=== PATIENT | female | born 2000 | race Caucasian/White ===

== ENCOUNTER 2018-05-30 11:54 | Emergency (ER) | payer OTHER ==
--- NOTE | 2018-05-30 12:37 | ED ---
Female Urogenital HPI - General Chief complaint: Vaginal Bleeding Stated complaint: Vaginal Bleeding-poss miscarriage Time Seen by Provider: 05/30/18 12:11 Source: patient, RN notes reviewed, old records reviewed Mode of arrival: wheelchair Limitations: no limitations - History of Present Illness Initial comments: Patient is a 18-year-old female presents emergency department today for reevaluation due to increased vaginal bleeding. Patient is a female. Patient seen in the emergency department 2 days ago. That time she refused blood work and testing. She was having some bright red blood and went to many of the time. She reports that she's had increased cramping and pain and worsening bleeding today. Patient believes that she may have passed gestational sac. She didn't have an ultrasound 2 days ago which did not identify a heart rate but did show evidence of gestational sac. She believes that she is 11 weeks . Her [employer] DEVELOPER is Dr. Francois. - Related Data Home Medications Medication Instructions Recorded Confirmed Pnv No.95/Ferrous Fum/Folic AC 1 tab PO HS 05/27/18 05/27/18 [ Multivitamin Tablet] Allergies Allergy/AdvReac Type Severity Reaction Status Date / Time No Known Allergies Allergy Verified 05/30/18 12:09 Review of Systems ROS Statement: Those systems with pertinent positive or pertinent negative responses have been documented in the HPI. ROS Other: All systems not noted in ROS Statement are negative. Past Medical History Past Medical History: No Reported History History of Any Multi-Drug Resistant Organisms: None Reported Past Surgical History: No Surgical Hx Reported Past Psychological History: No Psychological Hx Reported Smoking Status: Former smoker Past Alcohol Use History: None Reported Past Drug Use History: None Reported General Exam - General Exam Comments Initial Comments: This is a 18-year-old female. Alert and oriented 3. Patient appears in no significant distress. Limitations: no limitations General appearance: alert, in no apparent distress Head exam: Present: atraumatic, normocephalic, normal inspection Eye exam: Present: normal appearance, PERRL, EOMI. Absent: scleral icterus, conjunctival injection, periorbital swelling ENT exam: Present: normal exam, mucous membranes moist Neck exam: Present: normal inspection. Absent: tenderness, meningismus, lymphadenopathy Respiratory exam: Present: normal lung sounds bilaterally. Absent: respiratory distress, wheezes, rales, rhonchi, stridor Cardiovascular Exam: Present: regular rate, normal rhythm, normal heart sounds. Absent: systolic murmur, diastolic murmur, rubs, gallop, clicks GI/Abdominal exam: Present: soft, normal bowel sounds. Absent: distended, tenderness, guarding, rebound, rigid External exam: Present: normal external exam Speculum exam: Present: vaginal bleeding (large clots, heavy vaginal bleeding). Absent: normal speculum exam By manual exam: Present: normal by manual exam. Absent: cervical motion tenderness, adnexal tenderness Extremities exam: Present: normal inspection, full ROM, normal capillary refill. Absent: tenderness, pedal edema, joint swelling, calf tenderness Back exam: Present: normal inspection Neurological exam: Present: alert, oriented X3, CN II-XII intact Psychiatric exam: Present: normal affect, normal mood Skin exam: Present: warm, dry, intact, normal color. Absent: rash Course Vital Signs 05/30/18 05/30/18 05/30/18 12:07 14:14 15:19 Temperature 98.6 F 98.7 F Pulse Rate 83 69 64 Respiratory 16 18 18 Rate Blood Pressure 112/73 124/59 115/60 O2 Sat by Pulse 99 99 98 Oximetry Medical Decision Making - Medical Decision Making 18 year old female, presents with increased vaginal bleeding. She is about 11 weeks due to LMP. She has heavy vaginal bleed and signigicant clotting at this time. She has no adnexal tenderness. HCG level is 3280, Rh Positive blood type. Patient US shows gestational sac, with blighted ovum. She has passed multiple large clots in ED. Discussed if she feels weak and light headed to return for HGb Recheck. Discussed follow up with [employer]IC[employer] and repeat hcg level. Return parameters discussed. - Lab Data Result diagrams: 05/30/18 12:35 05/30/18 12:35 Lab Results 05/30/18 05/30/18 05/30/18 Range/Units 12:35 12:35 12:35 WBC 12.6 H (4.0-11.0) k/uL RBC 4.57 (3.80-5.40) m/uL Hgb 14.1 (11.4-16.0) gm/dL Hct 41.8 (34.0-46.0) % MCV 91.4 (80.0-100.0) fL MCH 30.8 (25.0-35.0) pg MCHC 33.7 (31.0-37.0) g/dL RDW 12.8 (11.5-15.5) % Plt Count 276 (150-450) k/uL Neutrophils % 78 % Lymphocytes % 15 % Monocytes % 5 % Eosinophils % 2 % Basophils % 0 % Neutrophils # 9.8 H (1.3-7.7) k/uL Lymphocytes # 1.8 (1.0-4.8) k/uL Monocytes # 0.6 (0-1.0) k/uL Eosinophils # 0.2 (0-0.7) k/uL Basophils # 0.0 (0-0.2) k/uL Sodium 141 (137-145) mmol/L Potassium 3.7 (3.5-5.1) mmol/L Chloride 107 (98-107) mmol/L Carbon Dioxide 23 (22-30) mmol/L Anion Gap 11 mmol/L BUN 6 L (7-17) mg/dL Creatinine 0.49 L (0.52-1.04) mg/dL Est GFR (CKD-EPI)AfAm >90 (>60 ml/min/1.73 sqM) Est GFR (CKD-EPI)NonAf >90 (>60 ml/min/1.73 sqM) Glucose 91 (74-99) mg/dL Calcium 9.9 (8.4-10.2) mg/dL Total Bilirubin 0.7 (0.2-1.3) mg/dL AST 20 (14-36) U/L ALT 25 (9-52) U/L Alkaline Phosphatase 56 (38-126) U/L Total Protein 7.8 (6.3-8.2) g/dL Albumin 4.7 (3.5-5.0) g/dL HCG, Quant 3827.8 mIU/mL Blood Type O Positive Blood Type Recheck [facility] ONLY - Radiology Data Radiology results: report reviewed Injury no gestational sac without yolk or pole identified. Possibly a blighted ovum should be considered. Disposition Clinical Impression: Threatened miscarriage Disposition: HOME SELF-CARE Condition: Good Instructions: Threatened Miscarriage (ED) Additional Instructions: Patient advised to follow-up with primary care physician. Return to the emergency department if any alarming signs or symptoms occur. Patient should your hCG level redrawn in 2 days. Is patient prescribed a controlled substance at d/c from ED?: No Referrals: None,Stated [Primary Care Provider] - 1-2 days Thomsa Francois DO [REFERRING] - 1-2 days Time of Disposition: 14:52
[2018-05-30 12:45] LABS: Basophils % (A) 0 %; Eosinophils # (A) 0.2 k/uL (0-0.7); Eosinophils % (A) 2 %; HCT 41.8 % (34.0-46.0); HGB 14.1 gm/dL (11.4-16.0); Lymphocytes # (A) 1.8 k/uL (1.0-4.8); Lymphocytes % (A) 15 %; MCH 30.8 pg (25.0-35.0); MCHC 33.7 g/dL (31.0-37.0); MCV 91.4 fL (80.0-100.0); Monocytes # (A) 0.6 k/uL (0-1.0); Monocytes % (A) 5 %; Neutrophils # (A) 9.8 k/uL (1.3-7.7); Neutrophils % (A) 78 %; Platelet Count 276 k/uL (150-450); RBC 4.57 m/uL (3.80-5.40); RDW 12.8 % (11.5-15.5); WBC 12.6 k/uL (4.0-11.0)
[2018-05-30 12:59] LABS: ALT 25 U/L (9-52); AST 20 U/L (14-36); Albumin 4.7 g/dL (3.5-5.0); Alkaline Phosphatase 56 U/L (38-126); Anion Gap 11 mmol/L; Blood Urea Nitrogen 6 mg/dL (7-17); Calcium 9.9 mg/dL (8.4-10.2); Carbon Dioxide 23 mmol/L (22-30); Chloride 107 mmol/L (98-107); Glucose 91 mg/dL (74-99); Potassium 3.7 mmol/L (3.5-5.1); Sodium 141 mmol/L (137-145); Total Bilirubin 0.7 mg/dL (0.2-1.3); Total Protein 7.8 g/dL (6.3-8.2)
[2018-05-30] MEDS ORDERED: KETOROLAC 30 MG/ML 1 ML VIAL IVP STA (13:06)
[2018-05-30 13:16] LABS: HCG,Quantitative Serum 3827.8 mIU/mL
--- NOTE | 2018-05-30 14:11 | US ---
EXAMINATION TYPE: Transabdominal DATE OF EXAM: 10/20/17 COMPARISON: NONE CLINICAL HISTORY: Pain. Vaginal bleeding, cramping EXAM PERFORMED: Transabdominal (TA) EXAM MEASUREMENTS: GESTATIONAL AGE / DATING Physician Established: Not yet established Dates by LMP: (11 weeks/4 days) EDC: 12/15/18 Dates by First Scan: (6 weeks/5 days) - by MSD EDC: 01/18/19 Dates by Current Scan for: (6 weeks/4 days) - by MSD EDC: 01/19/19 MATERNAL ANATOMY Uterus: 7.6 x 4.5 x 5.1cm Right Ovary: 2.7 x 1.5 x 3.3cm Left Ovary: 2.3 x 1.2 x 1.4cm Post CDS / Adnexa: wnl Presence of free fluid: no Presence of corpus luteal cyst: not seen at this time GESTATION / SURVEY MSD: 2.1cm (6 weeks/4 days) Yolk Sac (normal less than 6mm): not seen unable to identify pole at this time Date of LMP: 03/10/18 Beta HcG (if available): 3827 Probable GS visualized within uterus. Unable to identify yolk sac or pole at this time. IMPRESSION: Intrauterine gestational sac without yolk sac or pole identified. The possibility of blighted o vum should be considered.
[2018-05-30 14:15] VITALS: RESP 18
[2018-05-30 15:21] VITALS: BP 115/60; PULSE 64; TEMP 98.7
== END 2018-05-30 15:15 | disposition home or self-care (01) ==
LOC: EC 11:54
DX: O20.0 Threatened abortion (principal); Z3A.11 11 weeks gestation of pregnancy; Z87.891 Personal history of nicotine dependence
CPT/HCPCS: 36415; 86900; 86901; 80053; 85025; 84702; 76801; 99284; 96374; J1885

== ENCOUNTER → 2018-06-01 | Outpatient (CLI) | payer OTHER | END | disposition home or self-care (01) | LOC: LABWHC1 15:25 | PROVIDERS: ATTEND Physician Assistant Medical | DX: O20.0 Threatened abortion (principal); Z3A.00 Weeks of gestation of pregnancy not specified | CPT/HCPCS: 36415; 84702 ==

== ENCOUNTER → 2020-05-09 | Outpatient (CLI) | payer OTHER ==
--- NOTE | 2020-05-09 16:38 | US ---
EXAMINATION TYPE: Transabdominal DATE OF EXAM: 05/09/2020 12:46 PM COMPARISON: NONE CLINICAL HISTORY: Z36 confirm dates. Confirm Dates, pt has no complaints at this time EXAM PERFORMED: Transabdominal (TA) EXAM MEASUREMENTS: GESTATIONAL AGE / DATING Physician Established: (12 weeks/1 days) EDC: 11/20/2020 Dates by LMP: (12 weeks/1 days) EDC: 11/20/2020 Dates by First Scan: No prior Dates by Current Scan for: (12 weeks/0 days) EDC: 11/21/2020 MATERNAL ANATOMY Uterus: 11.2 x 6.1 x 8.1 cm Right Ovary: 2.3 x 1.5 x 1.2 cm Left Ovary: 2.0 x 1.7 x 1.4 cm Post CDS / Adnexa: wnl Presence of free fluid: No Presence of subchorionic bleed: No GESTATION / SURVEY CRL: 5.3 cm (12 weeks/0 days) MSD: wnl Heart Rate: 159 bpm Rhythm: Normal IUP: Viable IUP IMPRESSION: 1. Single live intrauterine gestation, with heart rate of 159 bpm. Gestational age 12 weeks 0 d ays. 2. Normal appearance of the bilateral ovaries. 3. No pelvic free fluid.
== END | disposition home or self-care (01) ==
LOC: RADUSWWP 12:32
PROVIDERS: ATTEND Obstetrics & Gynecology
DX: Z36.89 Encounter for other specified antenatal screening (principal); Z3A.12 12 weeks gestation of pregnancy
CPT/HCPCS: 76801

== ENCOUNTER 2020-11-09 06:46 | Inpatient (IN) | payer OTHER ==
[2020-11-09] MEDS ORDERED: TERBUTALINE 1 MG/ML VIAL SQ PRN (07:08)
[2020-11-09] MEDS ORDERED: CARBOPROST TROMETHAMINE 250 MCG/ML 1 ML AMP IM PRN (07:08)
[2020-11-09] MEDS ORDERED: OXYTOCIN 10 UNIT/ML 1 ML VIAL IM PRN (07:08)
[2020-11-09] MEDS ORDERED: METHYLERGONOVINE 0.2 MG/ML 1 ML AMP IM PRN (07:08)
[2020-11-09] MEDS ORDERED: LIDOCAINE 0.5% (PF) 5 MG/ML (50 ML SDV) SQ PRN (07:08)
[2020-11-09] MEDS ORDERED: LACTATED RINGERS 1,000 ML IV SCH (07:15)
[2020-11-09] MEDS: LACTATED RINGERS 1,000 ML IV SCH ×3 (07:30→12:20)
[2020-11-09 08:19] LABS: Basophils % (A) 0 %; Eosinophils # (A) 0.2 k/uL (0-0.7); Eosinophils % (A) 1 %; HCT 34.8 % (34.0-46.0); HGB 12.5 gm/dL (11.4-16.0); Lymphocytes % (A) 12 %; MCH 31.8 pg (25.0-35.0); MCV 88.3 fL (80.0-100.0); Mean Platelet Volume 8.4; Monocytes # (A) 0.9 k/uL (0-1.0); Monocytes % (A) 5 %; Neutrophils # (A) 12.8 k/uL (1.3-7.7); Neutrophils % (A) 80 %; Platelet Count 297 k/uL (150-450); RBC 3.94 m/uL (3.80-5.40); RDW 14.1 % (11.5-15.5); WBC 16.1 k/uL (3.8-10.6)
[2020-11-09] MEDS ORDERED: BUTORPHANOL 1 MG/ML 1 ML VIAL IV PRN (08:23)
--- NOTE | 2020-11-09 08:26 | P.HPOB ---
History of Present Illness H&P Date: 11/09/20 Chief Complaint: SROM 20-year-old presents at 38 weeks and 2 days with spontaneous rupture membranes. Her cervix is 2 cm dilated, 90% effaced, and -2 station. She is c ontracting irregularly. heart tones 130 with moderate variability and reactive. Review of Systems All systems: negative Constitutional: Denies chills, Denies fever Eyes: denies blurred vision, denies pain Ears, nose, mouth and throat: Denies headache, Denies sore throat Cardiovascular: Denies chest pain, Denies shortness of breath Respiratory: Denies cough Gastrointestinal: Denies abdominal pain, Denies diarrhea, Denies nausea, Denies vomiting Genitourinary: Denies dysuria, Denies hematuria Musculoskeletal: Denies myalgias Integumentary: Denies pruritus, Denies rash Neurological: Denies numbness, Denies weakness Psychiatric: Denies anxiety, Denies depression Endocrine: Denies fatigue, Denies weight change Past Medical History Past Medical History: Asthma Additional Past Medical History / Comment(s): Subjective history: First was a spontaneous this is her second and she's had care with Dr. Paz. Blood type is O+, antibodies negative, rubella immune, RPR nonreactive, hepatitis B negative, HIV negative. He is negative. History of Any Multi-Drug Resistant Organisms: None Reported Past Surgical History: No Surgical Hx Reported Past Psychological History: Anxiety Smoking Status: Never smoker Past Alcohol Use History: None Reported Past Drug Use History: None Reported - Past Family History Mother Family Medical History: Syncope Father Family Medical History: Hypertension Medications and Allergies Home Medications Medication Instructions Recorded Confirmed Type Pnv No.95/Ferrous Fum/Folic AC 1 tab PO HS 05/27/18 11/09/20 History [ Multivitamin Tablet] Allergies Allergy/AdvReac Type Severity Reaction Status Date / Time No Known Allergies Allergy Verified 11/09/20 06:59 Exam Osteopathic Statement: *. No significant issues noted on an osteopathic structural exam other than those noted in the History and Physical/Consult. Vital Signs Temp Pulse Resp BP Pulse Ox 11/09/20 07:18 96.4 F L 85 16 133/80 99 11/09/20 07:00 96.4 F L 85 16 133/80 99 Intake and Output 11/08/20 11/09/20 11/09/20 22:59 06:59 14:59 Other: Weight 115.212 kg Heart: Regular rate and rhythm Lungs: Clear to auscultation bilaterally Abdomen: Soft, nontender Extremities: Negative Homans sign Results Result Diagrams: 11/09/20 07:47 Abnormal Lab Results - Last 24 Hours (Table) 11/09/20 Range/Units 07:47 WBC 16.1 H (3.8-10.6) k/uL Neutrophils # 12.8 H (1.3-7.7) k/uL Assessment and Plan (1) Spontaneous rupture of membranes Current Visit: Yes Status: Acute Code(s): THY6730 - SNOMED Code(s): 789857056 (2) Normal labor Current Visit: Yes Status: Acute Code(s): O80 - ENCOUNTER FOR FULL-TERM UNCOMPLICATED DELIVERY; Z37.9 - OUTCOME OF DELIVERY, UNSPECIFIED SNOMED Code(s): 48491184 Plan: 1. Admit to family place 2. Expectant management 3. Anticipate normal vaginal delivery
[2020-11-09] MEDS ORDERED: fentaNYL (PF) 50 MCG/ML 5 ML AMP ONE (10:13)
[2020-11-09] MEDS ORDERED: SODIUM CHLORIDE 0.9% 100 ML BAG ONE (10:13)
[2020-11-09] MEDS ORDERED: ROPIVACAINE 5MG/ML 20ML VIAL ONE (10:13)
[2020-11-09] MEDS ORDERED: SIMETHICONE 80 MG CHEWABLE PO PRN (16:28)
[2020-11-09] MEDS ORDERED: diphenhydrAMINE 50 MG CAP PO PRN (16:28)
[2020-11-09] MEDS ORDERED: diphenhydrAMINE 25 MG CAP PO PRN (16:28)
[2020-11-09] MEDS ORDERED: HYDROCORTISONE 2.5% RECTAL CREAM 30 GM TUBE RECTAL PRN (16:28)
[2020-11-09] MEDS ORDERED: LANOLIN CREAM 5 GM TUBE TOPICAL PRN (16:28)
[2020-11-09] MEDS ORDERED: ACETAMINOPHEN TAB 325 MG TAB PO PRN (16:28)
[2020-11-09] MEDS ORDERED: BENZOCAINE/MENTHOL SPRAY 1 GM/SPRAY AEROSOL TOPICAL PRN (16:28)
[2020-11-09] MEDS ORDERED: diphenhydrAMINE 50 MG/ML 1 ML VIAL IVP PRN ×2 (16:28)
[2020-11-09] MEDS ORDERED: ZOLPIDEM 5 MG TAB PO PRN (16:28)
[2020-11-09] MEDS ORDERED: OXYTOCIN 30 UNITS/500 ML NS 30 UNIT in SALINE 1 500ML.BAG IV SCH (16:30)
[2020-11-09] MEDS: IBUPROFEN 600 MG TAB PO SCH (17:01)
--- NOTE | 2020-11-09 17:35 | P.PROBDLV ---
Vaginal Delivery Note - . Vaginal Delivery Note: The patient progressed to complete dilation after spontaneous rupture of membranes and one dose of Stadol followed by epidural anesthesia. She did receive 1 milliunit of oxytocin but this was discontinued due to a deceleration shortly before she was found to be 9-1/2 cm. She began pushing. 's head came to a crown. With one further push, the 's head delivered across the perineum followed by the anterior shoulder and the remainder of the . was placed on mother's abdomen and cord was clamped and cut. Infant was then examined by nursing staff. Cord blood was obtained secondary to O+ blood type. A viable female was noted with scores of 9 at 1 minute and 9 at 5 minutes and weight of 7 pounds 1.6 ounces. Placenta delivered shortly thereafter, intact, with a three-vessel cord. Uterus contracted fairly well after oxytocin was given and uterine massage was carried out. Her bladder was also drained. Inspection of the perineum revealed a second-degree perineal laceration. This area was anesthetized with 1% lidocaine and then sutured with 3-0 and 2-0 Vicryl suture in the usual multilayer fashion. Estimated blood loss is approximately 200 mL's. Both mother and are in stable condition.
[2020-11-09] MEDS: SENNOSIDES-DOCUSATE SODIUM 1 EACH TAB PO SCH (20:20)
[2020-11-10] MEDS: IBUPROFEN 600 MG TAB PO SCH ×5 (00:17→17:13)
[2020-11-10 07:12] LABS: Basophils % (A) 0 %; Eosinophils # (A) 0.1 k/uL (0-0.7); Eosinophils % (A) 1 %; HCT 26.8 % (34.0-46.0); Lymphocytes # (A) 2.1 k/uL (1.0-4.8); Lymphocytes % (A) 15 %; MCH 31.7 pg (25.0-35.0); MCHC 35.7 g/dL (31.0-37.0); MCV 88.8 fL (80.0-100.0); Mean Platelet Volume 9.3; Monocytes # (A) 0.7 k/uL (0-1.0); Monocytes % (A) 5 %; Neutrophils # (A) 10.8 k/uL (1.3-7.7); Neutrophils % (A) 78 %; Platelet Count 232 k/uL (150-450); RBC 3.02 m/uL (3.80-5.40); RDW 14.3 % (11.5-15.5); WBC 13.9 k/uL (3.8-10.6)
[2020-11-10 07:24] LABS: HGB 9.6 gm/dL (11.4-16.0)
[2020-11-10] MEDS: SENNOSIDES-DOCUSATE SODIUM 1 EACH TAB PO SCH ×2 (08:11→19:45)
--- NOTE | 2020-11-10 11:32 | P.DS ---
Providers Date of admission: 11/09/20 07:08 Expected date of discharge: 11/10/20 Attending physician: Valente Paz Primary care physician: Stated None Hospital Course: This is a 20-year-old female 2 para 0 at 38-2/7 weeks who presented with active labor with spontaneous rupture of membranes. She delivered vaginally a viable female on 11/09/2020 with scores of 9 at 1 minute and 9 at 5 minutes and weight of 7 pounds 1.6 ounces. Her course has been essentially uncomplicated. Lochia is decreasing. Pain is fairly well controlled with ibuprofen. She is working at breast-feeding. She does have a breast pump at home. Vital signs are stable. Abdomen is soft with fundus firm and nontender. Extremity show negative Homans. Impression is status post vaginal delivery day #1. Plan is to discharge home later today. Routine instructions are given. She will be given a shot impression for ibuprofen. She is advised to follow up with Dr. Paz in the office in 6 weeks. She is advised to call the office if she has any further questions or concerns prior to her appointment time. Procedures: Spontaneous vaginal delivery of a viable female infant on 11/09/2020 Patient Condition at Discharge: Stable Plan - Discharge Summary New Discharge Prescriptions: New Ibuprofen [Motrin] 600 mg PO Q6H #60 tab Continue Pnv No.95/Ferrous Fum/Folic AC [ Multivitamin Tablet] 1 tab PO HS Discharge Medication List Pnv No.95/Ferrous Fum/Folic AC [ Multivitamin Tablet] 1 tab PO HS 05/27/18 [History] Ibuprofen [Motrin] 600 mg PO Q6H #60 tab 11/10/20 [Rx] Follow up Appointment(s)/Referral(s): Valente Paz MD [STAFF PHYSICIAN] - 6 Weeks Activity/Diet/Wound Care/Special Instructions: Instructions 1. Do not begin any exercise program for 3 weeks. 2. Do not resume sexual relations for 3 weeks or longer if uncomfortable. 3. You may take tub baths or showers at any time. 4. You may use tampons if desired after 3 weeks. 5. Keep the area of episiotomy (stitches) clean and dry. 6. If you are not nursing, wear a good fitting, supportive bra during the day and limit fluid intake for at least 1 week to prevent breast engorgement. 7. Call the office, [phone], within the next week to make appointment for your 6 week checkup if it has not already been made. 8. Report any of the following occurrences to the doctor promptly: a. Heavy, excessive bleeding b. Chills, fever c. Burning or frequency of urination d. Pain or redness and breasts if nursing e. Increasing pain or swelling in episiotomy (stitches). In addition to the above instructions, the following additional should be followed: 1. No heavy lifting or straining (exercising) until after 6 week checkup. 2. Keep abdominal incision clean and dry: You may wear a dressing if more comfortable. 3. Make office appointment for 10 days after going home or as instructed by her doctor. Discharge Disposition: HOME SELF-CARE
[2020-11-11] MEDS: IBUPROFEN 600 MG TAB PO SCH (07:41)
[2020-11-11] MEDS: SENNOSIDES-DOCUSATE SODIUM 1 EACH TAB PO SCH (07:41)
[2020-11-11 08:54] VITALS: RESP 16
[2020-11-11 08:59] VITALS: BP 111/65; PULSE 82; TEMP 98.4
== END 2020-11-11 10:17 | disposition home or self-care (01) | DRG 807 ==
LOC: FBPOP 06:46 → 4FBP 07:08
PROVIDERS: ADMIT Obstetrics & Gynecology; ATTEND Obstetrics & Gynecology
DX: O70.1 Second degree perineal laceration during delivery (principal); Z37.0 Single live birth; Z3A.38 38 weeks gestation of pregnancy; O99.52 Diseases of the respiratory system complicating childbirth; J45.909 Unspecified asthma, uncomplicated; Z79.899 Other long term (current) drug therapy; Z86.59 Personal history of other mental and behavioral disorders; Z82.49 Family history of ischemic heart disease and other diseases of the circulatory system
CPT/HCPCS: 59025; 84112; 85025; 86850; 86900; 86901; 99213

== ENCOUNTER → 2022-06-16 | Outpatient (CLI) | payer OTHER ==
[2022-06-16 18:02] LABS: Basophils # (A) 0.05 X 10*3/uL (0.00-0.10); Basophils % (A) 0.4 %; Eosinophils # (A) 0.17 X 10*3/uL (0.04-0.35); Eosinophils % (A) 1.5 %; HCT 43.6 % (37.2-46.3); HGB 14.4 g/dL (12.0-15.0); Immature Grans, Automated 0.3 %; Lymphocytes # (A) 2.18 X 10*3/uL (0.90-5.00); Lymphocytes % (A) 18.8 %; MCH 29.6 pg (27.0-32.0); MCV 89.5 fL (80.0-97.0); Mean Platelet Volume 10.7 fL (9.5-12.2); Monocytes # (A) 0.61 X 10*3/uL (0.20-1.00); Monocytes % (A) 5.3 %; NRBC Per 100 WBC 0 /100 WBCS (0.0-0.0); Neutrophils # (A) 8.54 X 10*3/uL (1.80-7.70); Neutrophils % (A) 73.7 %; Platelet Count 360 X 10*3/uL (140-440); RBC 4.87 X 10*6/uL (4.10-5.20); RDW 12.7 % (11.5-14.5); WBC 11.58 X 10*3/uL (4.50-10.00)
[2022-06-16 18:54] LABS: African American GFR (CKD) 137.2 (60.0-200.0); Albumin 5.3 g/dL (3.8-4.9); Albumin/Globulin Ratio 1.98 (1.60-3.17); Anion Gap 13.8 mmol/L (10.00-18.00); BUN/Creat Ratio 11.15 Ratio (12.00-20.00); Calcium 10.2 mg/dL (8.7-10.3); Carbon Dioxide 23.3 mmol/L (20.0-27.5); Globulin 2.7 g/dL (1.6-3.3); Non-African American GFR(CKD) 118.4 (60.0-200.0); Potassium 4.4 mmol/L (3.5-5.5); T4, Free (Free Thyroxine) 1.57 ng/dL (0.800-1.800); Total Bilirubin 0.7 mg/dL (0.30-1.20); Total Protein 7.9 g/dL (6.2-8.2)
== END | disposition home or self-care (01) ==
LOC: LABWHC1 12:04
PROVIDERS: ATTEND Family Medicine
DX: R11.2 Nausea with vomiting, unspecified (principal); R50.9 Fever, unspecified; R07.9 Chest pain, unspecified
CPT/HCPCS: 36415; 80053; 82150; 83690; 84439; 84443; 85025

== ENCOUNTER → 2022-06-16 | Outpatient (CLI) | payer OTHER ==
--- NOTE | 2022-06-16 12:54 | XR ---
EXAMINATION TYPE: XR chest 2V DATE OF EXAM: 06/16/2022 COMPARISON: NONE HISTORY: 22-year-old female complaining of chest pains. TECHNIQUE: Frontal and lateral views of the chest are obtained. FINDINGS: There is no focal air space opacity, pleural effusion, or pneumothorax seen. The cardiac silhouette size is within normal limits. The osseous structures are intact. IMPRESSION: No acute cardiopulmonary process.
== END | disposition home or self-care (01) ==
LOC: RADXRMAIN 12:26
PROVIDERS: ATTEND Family Medicine
DX: R07.9 Chest pain, unspecified (principal)
CPT/HCPCS: 71046

== ENCOUNTER → 2022-10-15 | Outpatient (CLI) | payer OTHER ==
--- NOTE | 2022-10-15 14:11 | XR ---
EXAMINATION TYPE: XR lumbar spine 2 or 3V DATE OF EXAM: 10/15/2022 12:33 PM INDICATION: Patient age:Female; 22 years old; Reason for study: M54.50; COMPARISON: None TECHNIQUE: Frontal, lateral and coned in L5-S1 lateral views of the spine. FINDINGS: No evidence of any acute osseous pathology. No evidence of loss of vertebral body height i s seen. There is normal alignment of the lumbar vertebral bodies. Minimal osteophyte formation throug hout the spine. Mild facet joint arthropathy. IMPRESSION: 1. No acute fracture. 2. Mild multilevel disc degeneration.
== END | disposition home or self-care (01) ==
LOC: RADXRMAIN 12:14
PROVIDERS: ATTEND Family Medicine
DX: M51.36 Other intervertebral disc degeneration, lumbar region (principal)
CPT/HCPCS: 72100

== ENCOUNTER → 2022-12-10 | Outpatient (CLI) | payer OTHER ==
--- NOTE | 2023-01-12 12:44 | EM ---
EVENT MONITOR THIRTY-DAY EVENT MONITOR REPORT: Number of recordings were noted, almost all of these are unremarkable. Some of these were patient generated, some of these were auto captured. There is sinus bradycardia at nighttime. Otherwise, normal sinus rhythm, sinus tachycardia, and rare isolated PVCs. This is unremarkable 30-day event monitor without any significant arrhythmia. MMDONTRELLL / LIZZN: [id number] /
== END | disposition home or self-care (01) ==
LOC: RADECHMAIN 08:00
PROVIDERS: ATTEND Family Medicine
DX: R00.0 Tachycardia, unspecified (principal); R00.1 Bradycardia, unspecified; R00.2 Palpitations
CPT/HCPCS: 93270

== ENCOUNTER 2024-01-11 06:06 | Inpatient (IN) | payer OTHER ==
[2024-01-11] MEDS ORDERED: METHYLERGONOVINE 0.2 MG/ML 1 ML AMP IM PRN (06:25)
[2024-01-11] MEDS ORDERED: TRANEXAMIC 1,000 MG/100ML-NACL 1,000 MG in EMPTY BAG 1 BAG IV PRN (06:25)
[2024-01-11] MEDS ORDERED: OXYTOCIN 10 UNIT/ML 1 ML VIAL IM PRN (06:25)
[2024-01-11] MEDS ORDERED: TERBUTALINE 1 MG/ML VIAL SQ PRN (06:25)
[2024-01-11] MEDS ORDERED: miSOPROStoL 200 MCG TAB PO PRN (06:25)
[2024-01-11] MEDS ORDERED: LIDOCAINE 0.5% (PF) 5 MG/ML (50 ML SDV) SQ PRN (06:25)
[2024-01-11] MEDS ORDERED: CARBOPROST TROMETHAMINE 250 MCG/ML 1 ML AMP IM PRN (06:25)
[2024-01-11] MEDS: LACTATED RINGERS 1,000 ML IV SCH (06:42)
[2024-01-11] MEDS: OXYTOCIN 30 UNITS/500 ML NS 30 UNIT in SALINE 1 500ML.BAG IV SCH (06:45)
[2024-01-11 07:30] LABS: Basophils % (A) 0 %; Eosinophils # (A) 0.1 k/uL (0-0.7); Eosinophils % (A) 1 %; HCT 31.9 % (34.0-46.0); HGB 10.1 gm/dL (11.4-16.0); Lymphocytes % (A) 14 %; MCHC 31.7 g/dL (31.0-37.0); MCV 85.1 fL (80.0-100.0); Mean Platelet Volume 9.4; Monocytes % (A) 7 %; Neutrophils # (A) 11.3 k/uL (1.3-7.7); Neutrophils % (A) 77 %; Platelet Count 289 k/uL (150-450); Poikilocytosis Slight; RBC 3.74 m/uL (3.80-5.40); WBC 14.6 k/uL (3.8-10.6)
[2024-01-11] MEDS ORDERED: NALBUPHINE 10 MG/ML (10 ML MDV) IV PRN (08:53)
--- NOTE | 2024-01-11 08:57 | P.HPOB ---
History of Present Illness H&P Date: 01/11/24 Chief Complaint: 39-5/7 weeks, elective induction The patient is a 23-year-old 2 para 1-0-0-1 admitted at 39-4/7 weeks as established by last menstrual period and confirmed by 8-week ultrasound. She is admitted for elective induction with all signs reassuring. Her has been uncomplicated and group B strep status is negative. She is known to be rubella immune. Obstetrical history: 2 para 1-0-0-1 with 1 previous term vaginal delivery without complications. Current statistics are listed in history of present illness. EDC of 03/15/2024 was established by last menstrual period and confirmed by 8-week ultrasound. Laboratory workup demonstrates a blood type of O+ with a negative antibody screen. Rubella status is nonimmune. The remainder of the laboratory workup was within normal limits. Early Glucola as well as second trimester Glucola were within normal limits. Group B strep status is negative. Gynecologic history: Unremarkable with no history of any infections to include STDs. Review of Systems Review of systems is confined to history of present illness. Past Medical History Past Medical History: Asthma Additional Past Medical History / Comment(s): Asthma as a kid History of Any Multi-Drug Resistant Organisms: None Reported Past Surgical History: No Surgical Hx Reported Additional Past Surgical History / Comment(s): wisdom teeth Past Anesthesia/Blood Transfusion Reactions: No Reported Reaction Past Psychological History: Anxiety, Depression, PTSD Smoking Status: Former smoker Past Alcohol Use History: None Reported Past Drug Use History: None Reported - Past Family History Mother Family Medical History: Syncope Father Family Medical History: Hypertension Medications and Allergies Home Medications Medication Instructions Recorded Confirmed Type Pnv No.95/Ferrous Fum/Folic AC 1 tab PO HS 05/27/18 01/11/24 History [ Multivitamin Tablet] Allergies Allergy/AdvReac Type Severity Reaction Status Date / Time No Known Allergies Allergy Verified 09/04/22 11:20 Exam Vital Signs Pulse Resp BP Pulse Ox 01/11/24 06:16 106 H 16 121/69 99 Intake and Output 01/10/24 01/11/24 01/11/24 22:59 06:59 14:59 Other: Weight 117.934 kg In general, this is a well-developed well-nourished female in no acute distress. Her heart has a regular rhythm and rate without murmur. Her lungs are clear to auscultation bilaterally in all lawrence. Her abdomen is gravid, nondistended, has normal active bowel sounds, soft, nontender, and without any palpable masses aside from the uterine fundus. Her extremities are without any cyanosis, clubbing, or edema and are nontender to palpation bilaterally. Digital cervical examination demonstrates her cervix to be 2 cm dilated, 60% effaced, with a vertex and presentation at -2 station. Artificial rupture of membranes is carried out demonstrating clear fluid. Results Result Diagrams: 01/11/24 06:53 Abnormal Lab Results - Last 24 Hours (Table) 01/11/24 Range/Units 06:53 WBC 14.6 H (3.8-10.6) k/uL RBC 3.74 L (3.80-5.40) m/uL Hgb 10.1 L (11.4-16.0) gm/dL Hct 31.9 L (34.0-46.0) % RDW 16.0 H (11.5-15.5) % Neutrophils # 11.3 H (1.3-7.7) k/uL Assessment and Plan (1) Term Current Visit: Yes Status: Acute Code(s): Z34.90 - ENCNTR FOR SUPRVSN OF NORMAL , UNSP, UNSP TRIMESTER SNOMED Code(s): 39890859 Plan: The patient has been admitted for elective induction of labor. Pitocin augmentation has been started and she has had artificial rupture of membranes. She will have close maternal and surveillance and expectant management will be practiced. She is a good candidate for either IV, epidural, or nitrous analgesia, whichever she may choose.
[2024-01-11] MEDS ORDERED: SODIUM CHLORIDE 0.9% 250 ML BAG ONE (10:02)
[2024-01-11] MEDS ORDERED: fentaNYL (PF) 50 MCG/ML 5 ML AMP ONE (10:02)
[2024-01-11] MEDS ORDERED: ROPIVACAINE 5 MG/ML 30 ML VIAL ONE (10:02)
[2024-01-11] MEDS ORDERED: LANOLIN CREAM 1 GM TUBE TOPICAL PRN (14:20)
[2024-01-11] MEDS ORDERED: HYDROCORTISONE 2.5% RECTAL CREAM 30 GM TUBE RECTAL PRN (14:20)
[2024-01-11] MEDS ORDERED: diphenhydrAMINE 25 MG CAP PO PRN (14:20)
[2024-01-11] MEDS ORDERED: diphenhydrAMINE 50 MG/ML 1 ML VIAL IVP PRN ×2 (14:20)
[2024-01-11] MEDS ORDERED: ZOLPIDEM 5 MG TAB PO PRN (14:20)
[2024-01-11] MEDS ORDERED: diphenhydrAMINE 50 MG CAP PO PRN (14:20)
[2024-01-11] MEDS ORDERED: SIMETHICONE 80 MG CHEWABLE PO PRN (14:20)
[2024-01-11] MEDS ORDERED: HYDROcodone/APAP 7.5-325MG 1 EACH TAB PO PRN (14:20)
[2024-01-11] MEDS ORDERED: BENZOCAINE/MENTHOL SPRAY 1 GM/SPRAY AEROSOL TOPICAL PRN (14:20)
[2024-01-11] MEDS ORDERED: HYDROcodone/APAP 5-325MG 1 EACH TAB PO PRN (14:20)
--- NOTE | 2024-01-11 14:26 | P.PROBDLV ---
Vaginal Delivery Note - . Vaginal Delivery Note: The patient is a 23-year-old 2 para 1-0-0-1 admitted at 39-4/7 weeks by good dating parameters. She is admitted for elective induction of labor with all signs reassuring. Her has been uncomplicated and group B strep status is negative. She is known to be nonimmune to rubella. On labor delivery, all signs are reassuring as noted above with a category 1 heart rate tracing. She had Pitocin augmentation started and underwent artificial rupture of membranes for clear fluid. She made progress to the active phase of labor and had an epidural catheter placed for analgesia. She then progressed fairly quickly through the active phase of labor to complete and pushed over the course of 1 contraction to a normal spontaneous vaginal delivery of a viable 9 pound 3 ounce baby girl with Apgars of 9 at 1 minute and 9 at 5 minutes delivered in the left occiput anterior position. There was a nuchal cord x 1 which was reduced following delivery. The placenta was delivered spontaneously, intact, grossly normal with a grossly normal, centrally inserted three-vessel cord. There was a small second-degree midline perineal laceration noted likely over the site of a previous laceration which was repaired in standard fashion using 3-0 chromic catgut without difficulty. Estimated blood loss was approximately 100 cc. There were no complications. All sponge, instrument, and needle counts were correct. Both mother and infant are resting comfortably in recovery.
[2024-01-11] MEDS ORDERED: OXYTOCIN 30 UNITS/500 ML NS 30 UNIT in SALINE 1 500ML.BAG IV SCH (14:30)
[2024-01-11] MEDS: IBUPROFEN 600 MG TAB PO PRN (20:41)
[2024-01-11] MEDS: SENNOSIDES-DOCUSATE SODIUM 1 EACH TAB PO SCH (20:41)
[2024-01-12 08:11] VITALS: BP 120/75; PULSE 75; RESP 16; TEMP 97.6
[2024-01-12] MEDS: ACETAMINOPHEN TAB 325 MG TAB PO PRN (08:21)
--- NOTE | 2024-01-12 09:00 | P.DS ---
Providers Date of admission: 01/11/24 06:06 Expected date of discharge: 01/12/24 Attending physician: Krish Loving Primary care physician: Henok Ureña - Discharge Diagnosis(es) (1) Term Current Visit: Yes Status: Acute (2) Normal spontaneous vaginal delivery Current Visit: Yes Status: Acute Hospital Course: The patient is a 23-year-old 2 para 1-0-0-1 admitted at 39-4/7 weeks by good dating parameters. She is admitted for elective induction with all signs reassuring. Group B strep status is negative. Rubella status is non-immune. On labor delivery, all signs were reassuring with a category 1 heart rate tracing. She had Pitocin augmentation started and underwent artificial rupture of membranes. She progressed through labor and had an epidural catheter placed for analgesia. She ultimately progressed to complete and then pushed to a normal spontaneous vaginal delivery of a viable 9 pound 3 ounce baby girl with Apgars of 9 at 1 minute and 9 at 5 minutes. Her course was unremarkable with vital signs remaining stable and her temperature was afebrile throughout. She was deemed stable for discharge on day #1 and was discharged home to follow-up in the office in 6 weeks time routinely. Discharge instructions included calling for any significantly increased bleeding or foul- smelling lochia, significantly increased fever or abdominal pain, perineal complaints, breast complaints, or anything else that concerned her. She was additionally instructed to have nothing in the vagina for at least 6 weeks time to include intercourse. She understood her instructions and agrees to follow-up as noted above. Discharge medications included continued vitamins as she has. Opted to breast-feed. she was otherwise to use [id number] analgesic pain medications as needed. Maternal blood type is O+ and rubella s tatus is nonimmune. She therefore was to receive MMR prior to discharge. Procedures: #1. Pitocin induction #2. Artificial rupture of membranes #3. Epidural analgesia #4. Normal spontaneous vaginal delivery #5. Repair of perineal laceration Patient Condition at Discharge: Stable Plan - Discharge Summary New Discharge Prescriptions: No Action Pnv No.95/Ferrous Fum/Folic AC [ Multivitamin Tablet] 1 tab PO HS Discharge Medication List Pnv No.95/Ferrous Fum/Folic AC [ Multivitamin Tablet] 1 tab PO HS 05/27/18 [History] Follow up Appointment(s)/Referral(s): Krish Loving MD [STAFF PHYSICIAN] - 6 Weeks Discharge Disposition: HOME SELF-CARE
[2024-01-12 09:34] LABS: Basophils % (A) 0 %; Eosinophils # (A) 0.1 k/uL (0-0.7); Eosinophils % (A) 1 %; HCT 30.4 % (34.0-46.0); HGB 9.7 gm/dL (11.4-16.0); Hypochromasia Slight; Lymphocytes # (A) 1.8 k/uL (1.0-4.8); Lymphocytes % (A) 14 %; MCH 27.6 pg (25.0-35.0); MCHC 31.7 g/dL (31.0-37.0); MCV 86.8 fL (80.0-100.0); Mean Platelet Volume 9.8; Monocytes # (A) 0.5 k/uL (0-1.0); Monocytes % (A) 4 %; Neutrophils # (A) 10.3 k/uL (1.3-7.7); Neutrophils % (A) 80 %; Platelet Count 252 k/uL (150-450); RDW 15.9 % (11.5-15.5); WBC 12.8 k/uL (3.8-10.6)
== END 2024-01-12 16:26 | disposition home or self-care (01) | DRG 560 ==
LOC: 4FBP 06:06
PROVIDERS: ADMIT Obstetrics & Gynecology; ATTEND Obstetrics & Gynecology
PROC: 10E0XZZ Delivery of Products of Conception, External Approach (ICD-10-PCS; principal; 2024-01-11)
PROC: 0KQM0ZZ Repair Perineum Muscle, Open Approach (ICD-10-PCS; 2024-01-11)
PROC: 10907ZC Drainage of Amniotic Fluid, Therapeutic from Products of Conception, Via Natural or Artificial Opening (ICD-10-PCS; 2024-01-11)
PROC: 3E033VJ Introduction of Other Hormone into Peripheral Vein, Percutaneous Approach (ICD-10-PCS; 2024-01-11)
DX: O62.3 Precipitate labor (principal); O70.1 Second degree perineal laceration during delivery; F43.10 Post-traumatic stress disorder, unspecified; F41.9 Anxiety disorder, unspecified; F32.A Depression, unspecified; J45.909 Unspecified asthma, uncomplicated; O99.344 Other mental disorders complicating childbirth; O99.52 Diseases of the respiratory system complicating childbirth; Z37.0 Single live birth; Z3A.39 39 weeks gestation of pregnancy; Z82.49 Family history of ischemic heart disease and other diseases of the circulatory system; Z87.891 Personal history of nicotine dependence
CPT/HCPCS: 85025; 86850; 86900; 86901